=== PATIENT | female | born 1940 | race Caucasian/White ===

== ENCOUNTER 2018-10-21 15:25 | Outpatient (CLI) | payer MEDICARE, OTHER ==
--- NOTE | 2018-10-21 16:00 | ULT ---
EXAM: Left lower extremity venous duplex: Deep veins evaluated with color Doppler, spectral analysis, and compression. INDICATIONS: Left lower extremity pain and edema. FINDINGS: Deep veins interrogated include common femoral vein, femoral vein, popliteal vein, and post erior tibial vein. These veins show normal compression and blood flow. No evidence of DVT. IMPRESSION: Negative Left venous duplex exam.
== END 2018-10-21 15:26 | disposition home or self-care (01) ==
LOC: BICULT 15:25
PROVIDERS: ATTEND Family Medicine
DX: M79.605 Pain in left leg (principal)

== ENCOUNTER 2019-04-09 11:36 | Inpatient (IN) | payer MEDICARE, OTHER ==
[2019-04-09] MEDS ORDERED: Albuterol Sulfate 2.5 mg/3 ml Neb ONE (12:11)
[2019-04-09 12:20] LABS: Actual Bicarbonate (HCO3a) 29.7 mEq/L (22-28); Analyzer IN Cardio ER; Base Excess (BEa) 3.3 mEq/L (-2.0 to +3.0); CO2 Tension 53.6 mmHg (35.0-45.0); Calcium, Ionized 1.14 mmol/L (1.12-1.30); Carboxyhemoglobin (COHb) 0.2 gm% (0.0-3.0); Hemoglobin (Hb) 12.4 g/dL (12.0-16.0); O2 Tension (PaO2) 83.4 mmHg (> 70.0); Potassium - ABG Lab 3.83 mmol/L (3.70-5.30); pH, Arterial 7.36 (7.35-7.45)
[2019-04-09 12:24] LABS: Puncture Site RRA
--- NOTE | 2019-04-09 12:29 | RAD ---
EXAM: Portable chest PROVIDED CLINICAL HISTORY: Cough and congestion COMPARISON: None FINDINGS: Cardiac and mediastinal silhouette is within normal limits. No focal consolidation, pleural fluid or pneumothorax evident. IMPRESSION: No evidence for an acute cardiopulmonary process.
[2019-04-09] MEDS ORDERED: Dexamethasone 10 MG/ML VIAL ONE (12:32)
[2019-04-09] MEDS ORDERED: Magnesium 2 GM/50 ML BAG (IN WATER) ONE (12:32)
[2019-04-09 12:58] LABS: Hemoglobin 12.1 g/dL (12.0-16.0); MDiff Complete? YES; Mean Corpuscular Hemoglobin 27.1 pg (27.0-31.0); Mean Corpuscular Volume 90.2 fL (78.0-98.0); Mean Platelet Volume 9.1 fL (7.4-10.4); Platelet Count 248 thou/uL (130-400); RBC Distribution Width 18.3 % (11.5-14.5); Red Blood Cell (RBC) Count 4.47 mill/uL (4.20-5.40); White Blood Cell (WBC) Count 7.2 thou/uL (4.8-10.8)
[2019-04-09 12:59] LABS: Band 20 % (5-11); Eosinophils 1 % (0-10); Lymphocytes 18 % (21-51); Monocytes 15 % (0-10); Neutrophil 45 % (42-75); Platelet Morphology Comment Appears Adequate; Polychromasia SLIGHT = 2-3 cells (100X) (0-2/hpf)
[2019-04-09 13:05] LABS: ALT (SGPT) 18 U/L (8-55); AST (SGOT) 38 U/L (5-34); Albumin 4.1 g/dL (3.4-4.8); Alkaline Phosphatase 59 U/L (40-110); Anion Gap 17 mmol/L (10-20); BUN (Urea Nitrogen) 14 mg/dL (9.8-20.1); Bilirubin, Total 0.4 mg/dL (0.2-1.2); CK (CPK) 71 U/L (29-168); Calc. Creatinine Clearance 0 mL/min (70-130); Calcium 9.4 mg/dL (7.8-10.44); Carbon Dioxide 26 mmol/L (23-31); Chloride 96 mmol/L (98-107); Estimated GFR-MDRD 57; Globulin 3.3 g/dL (2.4-3.5); Glucose 137 mg/dL (83-110); Lipase 40 U/L (8-78); Potassium 4.3 mmol/L (3.5-5.1); Protein, Total 7.4 g/dL (6.0-8.3); Sodium 135 mmol/L (136-145)
[2019-04-09] MEDS ORDERED: Acetaminophen 500 MG TAB ONE (13:28)
[2019-04-09] MEDS ORDERED: Oseltamivir 75 MG CAP PO SCH (14:45)
[2019-04-09] MEDS ORDERED: Sodium Chloride 0.9% 1,000 ML IV SCH (15:01)
[2019-04-09] MEDS ORDERED: Senokot S 8.6-50 MG TAB PO PRN (15:01)
[2019-04-09] MEDS ORDERED: Guaifenesin DM 100-10/5 ML UDCUP PO PRN (15:01)
[2019-04-09] MEDS ORDERED: Acetaminophen 325 MG TAB PO PRN (15:01)
[2019-04-09] MEDS ORDERED: Bisacodyl 10 MG SUPP PR PRN (15:01)
[2019-04-09] MEDS ORDERED: Ondansetron PF 4 MG/2 ML Vial IVP PRN (15:01)
[2019-04-09 17:47] VITALS: BMI 36.2
--- NOTE | 2019-04-09 18:38 | HP ---
REASON FOR ADMISSION: Acute respiratory failure with hypoxia, COPD exacerbation , influenza A. HISTORY OF PRESENTING ILLNESS: The patient gives history of shortness of breath off and on for the last 4 days now. Her granddaughter had strep throat, and they had taken her to urgent care on . The patient and her daughter both went to urgent care today to check themselves for strep throat, which was negative. She tested positive for influenza A. The patient normally uses 2 L oxygen and was saturating 80% on 3 L at the urgent care and was transferred here. The patient has some expectoration of brown to greenish yellow sputum at times. She had a temperature of 99 this morning. No complaints of chest pain or palpitation. The patient has taken a flu shot for this year and pneumococcal shot as well. She normally ambulates by herself in the house. PAST MEDICAL AND SURGICAL HISTORY: History of asthma, COPD, diabetes mellitus type 2, hypertension, history of colonic AV malformations with blood loss anemia in the past from last 3 years. Last colonoscopy was a year back. She gets iron transfusions for the same and the last one was on the 19 of March, history of hemorrhoids, partial hysterectomy, bilateral femoral artery stents for peripheral vascular disease, right middle finger surgery. CURRENT MEDICATIONS: The patient is on, 1. Furosemide 40 mg p.o. daily. 2. Metformin 500 mg p.o. twice daily. 3. Prednisone 5 mg p.o. daily for COPD. 4. Singulair 10 mg p.o. daily. 5. Zyrtec 10 mg p.o. daily. 6. Ellipta inhaler daily. 7. Albuterol inhaler q.6 hourly p.r.n. ALLERGIES: ALLERGIC TO PENICILLIN AND SULFA. PERSONAL HISTORY: Quit smoking in 1992, prior to which has smoked half pack a day for nearly 20 years. Does not abuse alcohol or drugs. FAMILY HISTORY: No inheritable disease per the patient. REVIEW OF SYSTEMS: CONSTITUTIONAL: Negative for weight loss or gain, ability to conduct usual activities. SKIN: Negative for rash, itching. EYES: Negative for double vision, pain. ENT/MOUTH: Negative for nose bleeding, neck stiffness, pain, tenderness. CARDIOVASCULAR: Negative for palpitations, dyspnea on exertion, orthopnea. RESPIRATORY: Negative for shortness of breath, wheezing, cough, hemoptysis, fever or night sweats. GASTROINTESTINAL: Negative for poor appetite, abdominal pain, heartburn, nausea , vomiting, constipation, or diarrhea. GENITOURINARY: Negative for urgency, frequency, dysuria, nocturia. MUSCULOSKELETAL: Negative for pain, swelling. NEUROLOGIC/PSYCHIATRIC: Negative for anxiety, depression. ALLERGY/IMMUNOLOGIC: Negative for skin rash, bleeding tendency. PHYSICAL EXAMINATION: GENERAL: The patient is a 78-year-old female who is currently in mild respiratory distress. VITAL SIGNS: Blood pressure 120/58, pulse 110 per minute, respiratory rate 28 per minute, temperature 99 degrees Fahrenheit, saturating 89% on 3 L nasal cannula. NECK: Supple. No elevated JVD. HEENT: Eyes; extraocular muscles intact. Pupils are reacting to light. Oral cavity, mucous membranes are dry. No exudates or congestion. CARDIOVASCULAR: S1 and S2 heard. Tachycardic. No murmur. RESPIRATORY: Air entry 1+ bilateral. Scattered wheezes plus bilateral. ABDOMEN: Soft. Bowel sounds heard. No tenderness, rigidity, or guarding. EXTREMITIES: No peripheral edema or calf tenderness. VASCULAR: Peripheral pulses 1+ bilateral. No ischemic ulcerations or gangrene. CENTRAL NERVOUS SYSTEM: No gross focal deficits noted. The patient is alert, awake, and oriented well. PSYCHIATRIC: The patient's mood is euthymic. No hallucinations or delusions. LABORATORY DATA: Chest x-ray done shows no acute cardiopulmonary abnormality. Influenza A and nasal smear antigen are positive. Serum bicarb 26, BUN 14, creatinine 0.9, serum glucose 137, AST 38, ALT 18, alkaline phosphatase 59. One set of troponin is negative. BNP is 23. Albumin is 4.1. Lipase is 40. Lactic acid 1.7. Blood gas done shows a pH of 7.36, pCO2 53, PO2 83. White count of 7.2, hemoglobin and hematocrit 12 and 40, platelet count 248, MCV is 90 with 45% neutrophils, 20% bands, 18% lymphocytes, and 15% monocytes. EKG done shows sinus tachycardia at 103 beats per minute. There is left anterior fascicular block seen. CLINICAL IMPRESSION AND PLAN: The patient will be admitted to medical floor for acute on chronic respiratory failure with hypoxia, chronic obstructive pulmonary disease exacerbation, influenza a. The patient will be on Tamiflu 75 mg p.o. twice daily. We will also place her empirically on Levaquin 500 mg IV daily along with DuoNeb q.6 hourly, Solu-Medrol 20 mg IV q.8 hourly, and we will obtain consultation with Dr. Reyna. The patient had plans to see Dr. Reyna and was awaiting an appointment to see him in his office per patient. We will continue her metformin and also place her on Humalog moderate sliding scale. We will obtain PT and OT evaluations to mobilize early to prevent deconditioning. We will continue to closely monitor her on medical floor. Code status was discussed with the patient and she is a full code. Power of real estate attorney is her daughter, number to reach her is [phone]. Job ID: [id number] MTDD
[2019-04-09] MEDS ORDERED: HumaLOG 300 UNITS/3 ML VIAL SC PRN (18:39)
[2019-04-09] MEDS ORDERED: Dextrose 5% in Water 1,000 ML IV PRN (18:39)
[2019-04-09] MEDS ORDERED: Dextrose 50% Abboject 50 ML SYRINGE SLOW IVP PRN (18:39)
[2019-04-09] MEDS: metFORMIN 500 MG TAB PO SCH (19:27)
[2019-04-09] MEDS: Famotidine 20 MG TAB PO SCH (20:35)
[2019-04-09] MEDS: Oseltamivir 75 MG CAP PO SCH (20:35)
[2019-04-09] MEDS: methylPREDNISolone Sod Succ 40 MG VIAL IVP SCH (21:10)
[2019-04-10] MEDS ORDERED: PROVENTIL INHALER 6.7 G (200 INHALATIONS) INH PRN (00:03)
[2019-04-10] MEDS: methylPREDNISolone Sod Succ 40 MG VIAL IVP SCH (05:21)
[2019-04-10 06:39] LABS: #Lymphocytes 0.8 thou/uL (1.20-3.40); #Monocytes 0.3 thou/uL (0.11-0.59); #Neutrophils 2.7 thou/uL (1.40-6.50); %Eosinophils 0.3 % (0.0-10.0); %Lymphocytes 20.8 % (21.0-51.0); %Monocytes 7.9 % (0.0-10.0); %Neutrophils 71.1 % (42.0-75.0); Hemoglobin 11.4 g/dL (12.0-16.0); Mean Corpuscular Hemoglobin 27.8 pg (27.0-31.0); Mean Corpuscular Volume 89.8 fL (78.0-98.0); Mean Platelet Volume 8.9 fL (7.4-10.4); Platelet Count 246 thou/uL (130-400); RBC Distribution Width 17.9 % (11.5-14.5); Red Blood Cell (RBC) Count 4.12 mill/uL (4.20-5.40); White Blood Cell (WBC) Count 3.8 thou/uL (4.8-10.8)
[2019-04-10] MEDS: Mometasone 100 MCG HFA INHALER INH SCH ×2 (06:45→18:03)
[2019-04-10 06:57] LABS: Anion Gap 16 mmol/L (10-20); BUN (Urea Nitrogen) 19 mg/dL (9.8-20.1); Calc. Creatinine Clearance 70 mL/min (70-130); Carbon Dioxide 25 mmol/L (23-31); Chloride 99 mmol/L (98-107); Estimated GFR-MDRD 61; Glucose 140 mg/dL (83-110); Potassium 5.4 mmol/L (3.5-5.1); Sodium 135 mmol/L (136-145)
[2019-04-10] MEDS: metFORMIN 500 MG TAB PO SCH ×2 (08:50→16:12)
[2019-04-10] MEDS: Oseltamivir 75 MG CAP PO SCH ×2 (08:50→20:08)
[2019-04-10] MEDS: Enoxaparin Sodium 40 MG/0.4 ML SYRINGE SC SCH (08:50)
[2019-04-10] MEDS: Famotidine 20 MG TAB PO SCH ×2 (11:38→20:08)
--- NOTE | 2019-04-10 12:16 | PDOC.HOSPP ---
- Subjective Encounter Date: 04/10/19 Encounter Time: 08:00 Subjective: breathing better, no sob is ambulating in room she couldn't sleep last night bcos of steroids - Objective Vital Signs & Weight: Vital Signs (12 hours) Temp Pulse Pulse Pulse Resp BP BP 04/10/19 11:25 98 F 82 22 H 150/61 H 04/10/19 10:00 102 H 97 04/10/19 08:10 04/10/19 06:45 108 H 18 04/10/19 05:35 98.4 F 76 20 151/83 H Pulse Ox Pulse Ox Pulse Ox 04/10/19 11:25 97 04/10/19 10:00 83 L 91 L 04/10/19 08:10 94 L 04/10/19 06:45 94 L 04/10/19 05:35 95 Weight Weight 185 lb 11.2 oz I&O: 04/09/19 04/10/19 04/11/19 06:59 06:59 06:59 Intake Total 1050 Balance 1050 Result Diagrams: 04/10/19 06:02 04/10/19 06:02 Additional Labs: Accuchecks 04/10/19 04/10/19 04/09/19 11:23 05:58 20:43 POC Glucose 192 H 140 H 162 H Hospitalist ROS - Medication Medications: Active Medications Generic Name Dose Route Start Last Admin Trade Name Freq PRN Reason Stop Dose Admin Acetaminophen 650 mg 04/09/19 15:01 04/10/19 02:29 Tylenol PO 650 mg Q4H PRN Administration Headache/Fever/Mild Pain (1-3) Albuterol/Ipratropium 3 ml 04/09/19 19:00 04/10/19 06:45 Duoneb NEB 3 ml [id number] MAURI Administration Enoxaparin Sodium 40 mg 04/10/19 09:00 04/10/19 08:50 Lovenox SC Not Given 0900 MAURI Famotidine 20 mg 04/09/19 21:00 04/10/19 11:38 Pepcid PO Not Given BID MAURI Guaifenesin/Dextromethorphan 15 ml 04/09/19 15:01 04/10/19 02:28 Robitussin Dm PO 15 ml Q4H PRN Administration Cough Levofloxacin 500 mg/ Device 100 mls @ 100 mls/hr 04/09/19 16:00 04/09/19 18: 54 IVPB Not Given 1600 MAURI Metformin HCl 500 mg 04/09/19 17:00 04/10/19 08:50 Glucophage PO 500 mg BID-WM MAURI Administration Methylprednisolone Sodium Succinate 20 mg 04/09/19 22:00 04/10/19 05:21 Solu-Medrol IVP 20 mg Q8HR MAURI Administration Mometasone Furoate 1 puff 04/10/19 06:30 04/10/19 06:45 Asmanex Hfa 100 Mcg INH 1 puff BID-RT MAURI Administration Oseltamivir Phosphate 75 mg 04/09/19 21:00 04/10/19 08:50 Tamiflu PO 04/14/19 09:01 75 mg BID MAURI Administration - Exam General Appearance: awake alert Eye: PERRL, anicteric sclera ENT: no oropharyngeal lesions, moist mucosa Neck: supple, no JVD Heart: RRR, no murmur Respiratory: no wheezes, no rales, rhonchi Gastrointestinal: soft, non-tender, non-distended, normal bowel sounds Extremities: no cyanosis, no edema Neurological: cranial nerve grossly intact, no focal deficits Psychiatric: normal affect, A&O x 3 Hosp A/P (1) Acute on chronic respiratory failure Code(s): J96.20 - ACUTE AND CHR RESP FAILURE, UNSP W HYPOXIA OR HYPERCAPNIA Status: Acute Qualifiers: Respiratory failure complication: hypoxia Qualified Code(s): J96.21 - Acute and chronic respiratory failure with hypoxia (2) COPD exacerbation Code(s): J44.1 - CHRONIC OBSTRUCTIVE PULMONARY DISEASE W (ACUTE) EXACERBATION Status: Acute (3) Influenza A Code(s): J10.1 - FLU DUE TO OTH IDENT INFLUENZA VIRUS W OTH RESP MANIFEST Status: Acute (4) HTN (hypertension) Code(s): I10 - ESSENTIAL (PRIMARY) HYPERTENSION Status: Chronic Qualifiers: Hypertension type: essential hypertension Qualified Code(s): I10 - Essential (primary) hypertension (5) DM type 2 (diabetes mellitus, type 2) Status: Chronic Qualifiers: Diabetes mellitus termite exterminator insulin use: without termite exterminator use - Plan dc solumedrol, oral prednisone rapid taper to home dose at 5mg in 24hrs continue nebs, levaquin, tamiflu, metformin, humalog coverage hemostable taper oxygen to 2lts by nasal canula to amb as tolerated in hallway
[2019-04-10] MEDS: HumaLOG 300 UNITS/3 ML VIAL SC PRN ×2 (13:08→16:12)
[2019-04-10] MEDS ORDERED: Loperamide HCl 2 MG CAP PO SCH (17:15)
[2019-04-10] MEDS ORDERED: ALPRAZolam 0.25 MG TAB PO SCH (21:30)
[2019-04-11] MEDS: Oseltamivir 75 MG CAP PO SCH ×2 (08:34→21:49)
[2019-04-11] MEDS: metFORMIN 500 MG TAB PO SCH ×2 (08:34→16:44)
[2019-04-11] MEDS: predniSONE 20 MG TAB PO SCH (08:34)
[2019-04-11] MEDS: Mometasone 100 MCG HFA INHALER INH SCH ×2 (08:53→19:20)
[2019-04-11] MEDS: ALPRAZolam 0.25 MG TAB PO PRN ×2 (10:40→21:53)
[2019-04-11] MEDS: Famotidine 20 MG TAB PO SCH ×2 (10:40→21:48)
[2019-04-11] MEDS: Enoxaparin Sodium 40 MG/0.4 ML SYRINGE SC SCH (10:41)
--- NOTE | 2019-04-11 14:06 | PDOC.HOSPP ---
- Subjective Encounter Date: 04/11/19 Encounter Time: 08:40 Subjective: Pt seen for followup re: acute on chronic hypoxic respiratory failure. Feels anxious. - Objective Vital Signs & Weight: Vital Signs (12 hours) Temp Pulse Resp BP Pulse Ox 04/11/19 13:35 95 16 04/11/19 08:53 95 16 04/11/19 08:40 95 16 04/11/19 08:00 97.7 F 96 20 163/75 H 95 Weight Weight 185 lb 11.2 oz I&O: 04/10/19 04/11/19 04/12/19 06:59 06:59 06:59 Intake Total 1050 1710 Balance 1050 1710 Result Diagrams: 04/10/19 06:02 04/10/19 06:02 Additional Labs: Accuchecks 04/11/19 04/11/19 04/10/19 12:05 04:42 20:26 POC Glucose 152 H 150 H 136 H 04/10/19 15:44 POC Glucose 186 H Labs and MARs reviewed by md Hospitalist ROS - Review of Systems Respiratory: reports: SOB with excertion. denies: cough, dry, shortness of breath, hemoptysis, pleuritic pain, sputum, wheezing Cardiovascular: denies: chest pain, palpitations, orthopnea, paroxysmal noc. dyspnea, edema, light headedness - Medication Medications: Active Medications Generic Name Dose Route Start Last Admin Trade Name Freq PRN Reason Stop Dose Admin Acetaminophen 650 mg 04/09/19 15:01 04/10/19 02:29 Tylenol PO 650 mg Q4H PRN Administration Headache/Fever/Mild Pain (1-3) Albuterol/Ipratropium 3 ml 04/09/19 19:00 04/11/19 13:35 Duoneb NEB 3 ml [id number] MAURI Administration Alprazolam 0.25 mg 04/11/19 10:21 04/11/19 10:40 Xanax PO 0.25 mg BIDPRN PRN Administration Anxiety Enoxaparin Sodium 40 mg 04/10/19 09:00 04/11/19 10:41 Lovenox SC Not Given 0900 MAURI Famotidine 20 mg 04/09/19 21:00 04/11/19 10:40 Pepcid PO 20 mg BID MAURI Administration Guaifenesin/Dextromethorphan 15 ml 04/09/19 15:01 04/10/19 02:28 Robitussin Dm PO 15 ml Q4H PRN Administration Cough Levofloxacin 500 mg/ Device 100 mls @ 100 mls/hr 04/09/19 16:00 04/10/19 16: 09 IVPB 100 mls 1600 MAURI Administration Insulin Human Lispro 0 units 04/09/19 18:39 04/10/19 16:12 Humalog SC 2 unit .MODERATE SLIDING SC PRN Administration Moderate Correctional Scale Metformin HCl 500 mg 04/09/19 17:00 04/11/19 08:34 Glucophage PO 500 mg BID-WM MAURI Administration Mometasone Furoate 1 puff 04/10/19 06:30 04/11/19 08:53 Asmanex Hfa 100 Mcg INH 1 puff BID-RT MAURI Administration Oseltamivir Phosphate 75 mg 04/09/19 21:00 04/11/19 08:34 Tamiflu PO 04/14/19 09:01 75 mg BID MAURI Administration Prednisone 20 mg 04/11/19 08:00 04/11/19 08:34 Prednisone PO 20 mg QAM-WM MAURI Administration - Exam General - other findings: Obese Eye: anicteric sclera ENT: moist mucosa Neck: supple Heart: RRR Respiratory: CTAB Respiratory - other findings: Diminished air entry frankie bases Gastrointestinal: soft, non-tender Psychiatric: normal affect, normal behavior Hosp A/P (1) Acute on chronic respiratory failure Code(s): J96.20 - ACUTE AND CHR RESP FAILURE, UNSP W HYPOXIA OR HYPERCAPNIA Status: Acute Qualifiers: Respiratory failure complication: hypoxia Qualified Code(s): J96.21 - Acute and chronic respiratory failure with hypoxia (2) COPD exacerbation Code(s): J44.1 - CHRONIC OBSTRUCTIVE PULMONARY DISEASE W (ACUTE) EXACERBATION Status: Acute (3) Influenza A Code(s): J10.1 - FLU DUE TO OTH IDENT INFLUENZA VIRUS W OTH RESP MANIFEST Status: Acute (4) DM type 2 (diabetes mellitus, type 2) Status: Chronic Qualifiers: Diabetes mellitus rn long term care insulin use: without rn long term care use (5) HTN (hypertension) Code(s): I10 - ESSENTIAL (PRIMARY) HYPERTENSION Status: Chronic Qualifiers: Hypertension type: essential hypertension Qualified Code(s): I10 - Essential (primary) hypertension - Plan continue antibiotics, out of bed/ambulate continue oral prednisone continue nebs, levaquin, tamiflu, metformin, insulin sliding scale. Check AM labs. Likely home 24 hrs. Pt worried about going home today.
[2019-04-11] MEDS: HumaLOG 300 UNITS/3 ML VIAL SC PRN (17:42)
--- NOTE | 2019-04-11 18:14 | PRG ---
DATE OF SERVICE: 04/11/2019 SERVICE: Pulmonary Medicine. INTERVAL HISTORY: The patient is doing okay from respiratory standpoint. She is doing a little bit better until she started working with Physical Therapy. This is the most activity she has done in 3 days, and so, she is quite winded at this point. Otherwise, there has been no interval change to her condition. She continues to cough a little bit. We spent a little bit of time talking about home ventilators. Initially, she was a little resistant to the idea because of claustrophobia issues, but at this point, she consented to try to see if this can improve her quality of life to any significant degree. PHYSICAL EXAMINATION: VITAL SIGNS: Afebrile, pulse 95, blood pressure 163/75, respirations 20, saturation 95% on 3 L nasal cannula. GENERAL: The patient is awake and alert. She is in no apparent distress. LUNGS: Improved air entry. There are prolonged expiratory phase and more wheezing than yesterday. No crackles or rhonchi are appreciated. HEART: Normal rate. Regular. ABDOMEN: Soft, nontender and nondistended. Bowel sounds are positive. MUSCULOSKELETAL: No cyanosis or clubbing. Trace to 1+ pitting is present in the bilateral lower extremities. NEUROLOGIC: Grossly nonfocal. LABORATORY DATA: Blood sugar ranges from 136 to 244. Blood cultures x2 are negative. Influenza A is positive. IMAGING STUDIES: Echocardiogram demonstrates normal ejection fraction, normal left atrium. Diastolic dysfunction is present. ASSESSMENT: 1. [id number] hypoxic respiratory failure. 2. Chronic hypercapnic respiratory failure. 3. Chronic obstructive pulmonary disease with acute exacerbation. 4. Influenza A. 5. Chronic diastolic heart failure. DISCUSSION AND PLAN: I will give the patient a single dose of Lasix, but I will postpone until tomorrow morning because it is getting late in the evening. I will put in a consult for RT Rosa to set the patient up with a nocturnal ventilator for night time and as needed day time use. Home BiPAP would be insufficient because of the severity of the patient's underlying respiratory failure. COPD causing hypercapnic failure is the major contributor to her respiratory disease. I will have her follow up with me in clinic in 2 to 3 months in the outpatient setting with a download off her new device. When she feels ready for discharge, she can be considered, but until that occurs, she is a very likely bounce-back. Job ID: [id number] MILLY
[2019-04-12 05:11] LABS: #Lymphocytes 1.5 thou/uL (1.20-3.40); #Neutrophils 4.4 thou/uL (1.40-6.50); %Basophils 0.1 % (0.0-1.0); %Eosinophils 0.2 % (0.0-10.0); %Lymphocytes 21.9 % (21.0-51.0); %Monocytes 14.5 % (0.0-10.0); %Neutrophils 63.3 % (42.0-75.0); Hemoglobin 9.6 g/dL (12.0-16.0); Mean Corpuscular HGB CONC 30.6 g/dL (32.0-36.0); Mean Corpuscular Hemoglobin 27.5 pg (27.0-31.0); Mean Corpuscular Volume 89.9 fL (78.0-98.0); Platelet Count 219 thou/uL (130-400); RBC Distribution Width 17.9 % (11.5-14.5); Red Blood Cell (RBC) Count 3.51 mill/uL (4.20-5.40); White Blood Cell (WBC) Count 6.9 thou/uL (4.8-10.8)
[2019-04-12 05:30] LABS: Anion Gap 10 mmol/L (10-20); BUN (Urea Nitrogen) 23 mg/dL (9.8-20.1); Calc. Creatinine Clearance 75 mL/min (70-130); Calcium 8.8 mg/dL (7.8-10.44); Carbon Dioxide 31 mmol/L (23-31); Chloride 104 mmol/L (98-107); Estimated GFR-MDRD 66; Glucose 121 mg/dL (83-110); Potassium 4.4 mmol/L (3.5-5.1); Sodium 141 mmol/L (136-145)
[2019-04-12] MEDS: Mometasone 100 MCG HFA INHALER INH SCH ×2 (06:38→18:27)
[2019-04-12] MEDS: metFORMIN 500 MG TAB PO SCH ×2 (08:26→18:36)
[2019-04-12] MEDS: predniSONE 20 MG TAB PO SCH (08:26)
[2019-04-12] MEDS: Oseltamivir 75 MG CAP PO SCH ×2 (08:26→21:01)
[2019-04-12] MEDS: ALPRAZolam 0.25 MG TAB PO PRN (08:35)
[2019-04-12] MEDS ORDERED: Furosemide 40 MG/4 ML VIAL SLOW IVP SCH (09:00)
--- NOTE | 2019-04-12 10:16 | CON ---
DATE OF CONSULTATION: SERVICE: Pulmonary Medicine. REASON FOR CONSULTATION: COPD exacerbation. HISTORY OF PRESENT ILLNESS: The patient is a 78-year-old white female with past medical history significant for COPD and chronic hypoxic respiratory failure. She is on home oxygen. She typically uses [employer]. She was in her usual state of health when she was visiting with her family. There were several grandchildren that were sick. Ultimately, 3 days after her first day, she ended up with increasing shortness of breath, cough, and fever. She had malaise and myalgias. She presented to the emergency department a couple of days later and was identified as having the flu. Since she has been in the hospital, she has made a significant improvement in symptoms. She has been on steroids, nebulized medications, and antibiotics. Otherwise, she is in her usual state of health. She does not have any chest discomfort, nausea, vomiting, or diarrhea. PAST MEDICAL HISTORY: 1. COPD. 2. Chronic hypoxic respiratory failure. 3. Childhood history of asthma. 4. Type 2 diabetes mellitus. 5. Hypertension. 6. Dyslipidemia. 7. 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 PAST SURGICAL HISTORY: 1. Partial hysterectomy. 2. Femoral artery stent placement. 3. Right third digit surgery. ALLERGIES: PENICILLIN AND SULFA. MEDICATIONS: List of her inpatient medications was reviewed. No specific updates were made. FAMILY HISTORY: Noncontributory. SOCIAL HISTORY: She quit smoking in 1992. Prior to that, she only had a 10-15 pack year history of smoking. Denies any alcohol or illicit drugs. She has no exposure to chemicals, dust, asbestos, or tuberculosis. REVIEW OF SYSTEMS: General, head, ears, eyes, nose, throat, cardiovascular, respiratory, GI, , musculoskeletal, neurologic, and skin are negative except as mentioned is the HPI. PHYSICAL EXAMINATION: VITAL SIGNS: Afebrile, pulse 98, blood pressure 150/61, respirations 16, saturation 93%, currently on 2 L nasal cannula. GENERAL: The patient is awake and alert, in no apparent distress. LUNGS: Very reduced air entry with a prolonged expiratory phase. Polyphonic wheezing and crackles are both appreciated. Rhonchi are present, but do not clear with cough. HEART: Normal rate. Regular. ABDOMEN: Soft, nontender, nondistended. Bowel sounds are positive. MUSCULOSKELETAL: No cyanosis or clubbing. There is a trace 1+ pitting in the right lower extremity. No pitting in the left lower extremity. NEUROLOGIC: Grossly nonfocal. LABORATORY DATA: WBC 3.8, hemoglobin 11.4, platelets 246,000. PH 7.36, pCO2 of 53, pO2 of 83. Potassium 5.4. Basic metabolic profile is otherwise unremarkable. Creatinine 0.9. Blood cultures x2 are unremarkable. Influenza A is positive. IMAGING STUDIES: Chest x-ray demonstrates flattening of the diaphragm bilaterally. Otherwise, there are no overt consolidating lesions identified. ASSESSMENT: 1. Acute on chronic hypoxic and hypercapnic respiratory failure. 2. Chronic obstructive pulmonary disease with acute exacerbation secondary to influenza A. DISCUSSION AND PLAN: The patient is doing fine from respiratory standpoint. She is moving in the right direction. We will continue supportive care including steroids, nebulized medications, and antibiotics. She may benefit from noninvasive ventilation in the outpatient setting. Pulmonary/Critical Care will continue to follow. I will get an echocardiogram to evaluate her left ventricular ejection fraction. Pulmonary/Critical Care will continue to follow along. 70 minutes have been devoted to this patient in various activities. I personally reviewed all imaging studies and laboratory data noted within this document. For fifty percent of this time, I was interacting with the patient at the bedside or coordinating care with the care team. For the remainder of the time I was immediately available to the patient in the hospital unit. Job ID: [id number] MTDD
[2019-04-12] MEDS: Enoxaparin Sodium 40 MG/0.4 ML SYRINGE SC SCH (10:28)
--- NOTE | 2019-04-12 10:32 | PDOC.HOSPP ---
- Subjective Encounter Date: 04/12/19 Encounter Time: 09:45 Subjective: feels better is on 2 lts by nc oxygen daughter at bedside - Objective Vital Signs & Weight: Vital Signs (12 hours) Temp Pulse Resp BP Pulse Ox 04/12/19 08:00 98.1 F 100 20 140/62 95 04/12/19 06:40 94 18 100 04/12/19 06:38 94 18 100 04/11/19 23:43 88 16 94 L Weight Weight 185 lb 11.2 oz I&O: 04/11/19 04/12/19 04/13/19 06:59 06:59 06:59 Intake Total 1710 Balance 1710 Result Diagrams: 04/12/19 04:53 04/12/19 04:53 Additional Labs: Accuchecks 04/12/19 04/11/19 04/11/19 05:10 20:35 16:43 POC Glucose 123 H 134 H 244 H 04/11/19 12:05 POC Glucose 152 H Hospitalist ROS - Medication Medications: Active Medications Generic Name Dose Route Start Last Admin Trade Name Freq PRN Reason Stop Dose Admin Acetaminophen 650 mg 04/09/19 15:01 04/10/19 02:29 Tylenol PO 650 mg Q4H PRN Administration Headache/Fever/Mild Pain (1-3) Albuterol/Ipratropium 3 ml 04/09/19 19:00 04/12/19 06:40 Duoneb NEB 3 ml [id number] MAURI Administration Alprazolam 0.25 mg 04/11/19 10:21 04/12/19 08:35 Xanax PO 0.25 mg BIDPRN PRN Administration Anxiety Enoxaparin Sodium 40 mg 04/10/19 09:00 04/12/19 10:28 Lovenox SC 40 mg 0900 MAURI Administration Famotidine 20 mg 04/09/19 21:00 04/11/19 21:48 Pepcid PO 20 mg BID MAURI Administration Guaifenesin/Dextromethorphan 15 ml 04/09/19 15:01 04/10/19 02:28 Robitussin Dm PO 15 ml Q4H PRN Administration Cough Insulin Human Lispro 0 units 04/09/19 18:39 04/11/19 17:42 Humalog SC 4 unit .MODERATE SLIDING SC PRN Administration Moderate Correctional Scale Metformin HCl 500 mg 04/09/19 17:00 04/12/19 08:26 Glucophage PO 500 mg BID-WM MAURI Administration Mometasone Furoate 1 puff 04/10/19 06:30 04/12/19 06:38 Asmanex Hfa 100 Mcg INH 1 puff BID-RT MAURI Administration Oseltamivir Phosphate 75 mg 04/09/19 21:00 04/12/19 08:26 Tamiflu PO 04/14/19 09:01 75 mg BID MAURI Administration Prednisone 20 mg 04/11/19 08:00 04/12/19 08:26 Prednisone PO 20 mg QAM-WM MAURI Administration - Exam General Appearance: awake alert Eye: PERRL, anicteric sclera ENT: no oropharyngeal lesions, moist mucosa Neck: supple, no JVD Heart: RRR, no murmur Respiratory: no wheezes, no rales, rhonchi Gastrointestinal: soft, non-tender, non-distended, normal bowel sounds Extremities: no cyanosis, no edema Neurological: cranial nerve grossly intact, no focal deficits Psychiatric: normal affect, A&O x 3 Hosp A/P (1) Acute on chronic respiratory failure Code(s): J96.20 - ACUTE AND CHR RESP FAILURE, UNSP W HYPOXIA OR HYPERCAPNIA Status: Acute Qualifiers: Respiratory failure complication: hypoxia Qualified Code(s): J96.21 - Acute and chronic respiratory failure with hypoxia (2) COPD exacerbation Code(s): J44.1 - CHRONIC OBSTRUCTIVE PULMONARY DISEASE W (ACUTE) EXACERBATION Status: Acute (3) Influenza A Code(s): J10.1 - FLU DUE TO OTH IDENT INFLUENZA VIRUS W OTH RESP MANIFEST Status: Acute (4) HTN (hypertension) Code(s): I10 - ESSENTIAL (PRIMARY) HYPERTENSION Status: Chronic Qualifiers: Hypertension type: essential hypertension Qualified Code(s): I10 - Essential (primary) hypertension (5) DM type 2 (diabetes mellitus, type 2) Status: Chronic Qualifiers: Diabetes mellitus superintendent container terminal insulin use: without superintendent container terminal use - Plan continue nebs, steroids, levaquin, tamiflu, metformin, humalog coverage hemostable to amb as tolerated in hallway home vent is being arranged by pulm dc plan per pulm advice I have d/w patient and daughter at bedside
[2019-04-12] MEDS ORDERED: Furosemide 80 MG TAB PO SCH (11:45)
--- NOTE | 2019-04-12 12:02 | PRG ---
DATE OF SERVICE: 04/12/2019 SERVICE: Pulmonary Medicine. INTERVAL HISTORY: The patient is doing wonderful from respiratory standpoint. She spoke with Sarmad Barlow today. She is looking forward to making an attempt to getting on noninvasive ventilator to see if this improves her quality of life and decreases her requirements for hospital stays. She denies any fevers, chills, nausea, or vomiting otherwise. PHYSICAL EXAMINATION: VITAL SIGNS: Afebrile, pulse 100, blood pressure 140/62, respirations 20, and saturation 95% on 2 L nasal cannula. GENERAL: The patient is awake and alert, in no apparent distress. LUNGS: Very reduced air entry. Polyphonic wheezing is present. I do not hear any crackles or rhonchi. HEART: Normal rate and regular. ABDOMEN: Soft, nontender, and nondistended. Bowel sounds are positive. MUSCULOSKELETAL: No cyanosis or clubbing. Trace pitting edema on the right and 1+ pitting edema on the left. LABORATORY DATA: WBC 6.9, hemoglobin 9.6. Creatinine 0.84. Basic metabolic profile is otherwise unremarkable. Blood cultures x2 are unremarkable. Influenza A is positive. ASSESSMENT: 1. Acute on chronic hypoxic respiratory failure. 2. Chronic hypercapnic respiratory failure. 3. Chronic obstructive pulmonary disease with acute exacerbation. 4. Influenza A. 5. Chronic diastolic heart failure. DISCUSSION AND PLAN: We will continue our supportive care including antibiotics, nebulized medications, and steroids. On discharge from the hospital, she will be set up with a home ventilator. She says that she is not prepared to go home today because she still has significant dyspnea when getting around. I will repeat hemoglobin and hematocrit tomorrow. I will look for signs of blood loss. If present, we will address that. Pulmonary/Critical Care will follow. Job ID: [id number]
[2019-04-12] MEDS: Famotidine 20 MG TAB PO SCH ×2 (12:39→21:01)
[2019-04-12] MEDS: HumaLOG 300 UNITS/3 ML VIAL SC PRN (18:40)
[2019-04-13] MEDS: ALPRAZolam 0.25 MG TAB PO PRN (04:09)
[2019-04-13 05:53] LABS: Hemoglobin 10.5 g/dL (12.0-16.0)
[2019-04-13] MEDS: Mometasone 100 MCG HFA INHALER INH SCH ×2 (07:01→19:07)
[2019-04-13] MEDS: Oseltamivir 75 MG CAP PO SCH ×2 (08:53→20:42)
[2019-04-13] MEDS: metFORMIN 500 MG TAB PO SCH ×2 (08:53→19:14)
[2019-04-13] MEDS: predniSONE 20 MG TAB PO SCH (08:53)
[2019-04-13] MEDS: Furosemide 40 MG TAB PO SCH (08:53)
[2019-04-13] MEDS: Famotidine 20 MG TAB PO SCH ×2 (08:53→20:41)
--- NOTE | 2019-04-13 11:51 | PDOC.HOSPP ---
- Subjective Encounter Date: 04/13/19 Encounter Time: 10:00 Subjective: had anxiety issues this am, feels better now worried going home with her sats dropping down to 83% on amb with 2 lts nc yesterday ate her breakfast well - Objective Vital Signs & Weight: Vital Signs (12 hours) Temp Pulse Resp BP Pulse Ox 04/13/19 08:00 98.3 F 105 H 20 144/71 H 95 04/13/19 07:03 94 18 97 04/13/19 07:01 92 18 97 04/13/19 00:42 102 H 18 96 Weight Weight 185 lb 11.2 oz Result Diagrams: 04/13/19 05:21 04/12/19 04:53 Additional Labs: Accuchecks 04/13/19 04/13/19 04/12/19 11:37 05:19 20:48 POC Glucose 150 H 123 H 181 H 04/12/19 17:17 POC Glucose 195 H Hospitalist ROS - Medication Medications: Active Medications Generic Name Dose Route Start Last Admin Trade Name Freq PRN Reason Stop Dose Admin Acetaminophen 650 mg 04/09/19 15:01 04/10/19 02:29 Tylenol PO 650 mg Q4H PRN Administration Headache/Fever/Mild Pain (1-3) Albuterol/Ipratropium 3 ml 04/09/19 19:00 04/13/19 07:03 Duoneb NEB 3 ml [id number] MAURI Administration Alprazolam 0.25 mg 04/11/19 10:21 04/13/19 04:09 Xanax PO 0.25 mg BIDPRN PRN Administration Anxiety Enoxaparin Sodium 40 mg 04/10/19 09:00 04/12/19 10:28 Lovenox SC 40 mg 0900 MAURI Administration Famotidine 20 mg 04/09/19 21:00 04/13/19 08:53 Pepcid PO 20 mg BID MAURI Administration Furosemide 40 mg 04/13/19 09:00 04/13/19 08:53 Lasix PO 40 mg DAILY MAURI Administration Guaifenesin/Dextromethorphan 15 ml 04/09/19 15:01 04/10/19 02:28 Robitussin Dm PO 15 ml Q4H PRN Administration Cough Insulin Human Lispro 0 units 04/09/19 18:39 04/12/19 18:40 Humalog SC 2 unit .MODERATE SLIDING SC PRN Administration Moderate Correctional Scale Levofloxacin 500 mg 04/13/19 06:00 04/13/19 06:23 Levaquin PO 500 mg 0600 MAURI Administration Metformin HCl 500 mg 04/09/19 17:00 04/13/19 08:53 Glucophage PO 500 mg BID-WM MAURI Administration Mometasone Furoate 1 puff 04/10/19 06:30 04/13/19 07:01 Asmanex Hfa 100 Mcg INH 1 puff BID-RT MAURI Administration Oseltamivir Phosphate 75 mg 04/09/19 21:00 04/13/19 08:53 Tamiflu PO 04/14/19 09:01 75 mg BID MAURI Administration Prednisone 20 mg 04/11/19 08:00 04/13/19 08:53 Prednisone PO 20 mg QAM-WM MAURI Administration - Exam General Appearance: awake alert Eye: PERRL, anicteric sclera ENT: no oropharyngeal lesions, moist mucosa Neck: supple, no JVD Heart: RRR Respiratory: no wheezes, no rales, rhonchi Gastrointestinal: soft, non-tender, non-distended, normal bowel sounds Extremities: no cyanosis, no edema Neurological: cranial nerve grossly intact, no focal deficits Psychiatric: normal affect, A&O x 3 Hosp A/P (1) Acute on chronic respiratory failure Code(s): J96.20 - ACUTE AND CHR RESP FAILURE, UNSP W HYPOXIA OR HYPERCAPNIA Status: Acute Qualifiers: Respiratory failure complication: hypoxia Qualified Code(s): J96.21 - Acute and chronic respiratory failure with hypoxia (2) COPD exacerbation Code(s): J44.1 - CHRONIC OBSTRUCTIVE PULMONARY DISEASE W (ACUTE) EXACERBATION Status: Acute (3) Influenza A Code(s): J10.1 - FLU DUE TO OTH IDENT INFLUENZA VIRUS W OTH RESP MANIFEST Status: Acute (4) HTN (hypertension) Code(s): I10 - ESSENTIAL (PRIMARY) HYPERTENSION Status: Chronic Qualifiers: Hypertension type: essential hypertension Qualified Code(s): I10 - Essential (primary) hypertension (5) DM type 2 (diabetes mellitus, type 2) Status: Chronic Qualifiers: Diabetes mellitus mcfp insulin use: without mcfp use - Plan continue nebs, steroids, levaquin, tamiflu, metformin, lasix, humalog coverage hemostable to amb as tolerated in hallway home vent is being arranged by pulm dc plan per pulm advice I have d/w patient and daughter at bedside staff to check her amb spo2 on 2 lts oxygen today and daily. ?swing bed if she still decompensates.
[2019-04-13] MEDS: HumaLOG 300 UNITS/3 ML VIAL SC PRN ×2 (12:02→18:21)
[2019-04-13] MEDS: Enoxaparin Sodium 40 MG/0.4 ML SYRINGE SC SCH (12:02)
--- NOTE | 2019-04-13 16:00 | PRG ---
DATE OF SERVICE: 04/13/2019 SERVICE: Pulmonary Medicine. INTERVAL HISTORY: The patient is doing okay from respiratory standpoint. She is about the same as yesterday. She has not made a robust recovery and she is a little bit downhearted because of that. Otherwise, she continues to cough a little bit, but not bringing up much phlegm. Denies any fevers or chills otherwise. PHYSICAL EXAMINATION: VITAL SIGNS: Afebrile, pulse 105, blood pressure 144/71, respirations 20, and saturation 95% on 2 L nasal cannula. GENERAL: The patient is awake and alert, in no apparent distress. LUNGS: Very good air entry without any prolonged expiratory phase or wheezing present. HEART: Normal rate, regular. ABDOMEN: Soft, nontender, nondistended, bowel sounds are positive. MUSCULOSKELETAL: No cyanosis or clubbing. There is pitting in bilateral lower extremities. NEUROLOGIC: Grossly nonfocal. LABORATORY DATA: Hemoglobin 10.5 and stable. Blood cultures x2 are negative. Influenza A is positive. ASSESSMENT: 1. Acute on chronic hypoxic respiratory failure. 2. Chronic hypercapnic respiratory failure. 3. Chronic obstructive pulmonary disease with acute exacerbation. 4. Influenza A. 5. Chronic diastolic heart failure. DISCUSSION AND PLAN: The patient is doing fine from respiratory standpoint. She just needs a little bit of time to recover from her influenza. We will continue supportive care including antibiotics, steroids, and nebulized medications. When she is discharged from the hospital, she will be set up with a home ventilator. Hemoglobin has been stable. No additional laboratories will be drawn tomorrow. Pulmonary will follow, intermittently, but when she feels ready for transition out of the hospital, she will be ready to go. Job ID: [id number]
[2019-04-14] MEDS: ALPRAZolam 0.25 MG TAB PO PRN ×2 (05:30→19:24)
[2019-04-14] MEDS: Mometasone 100 MCG HFA INHALER INH SCH ×2 (08:18→19:05)
[2019-04-14] MEDS: Enoxaparin Sodium 40 MG/0.4 ML SYRINGE SC SCH (09:34)
[2019-04-14] MEDS: Oseltamivir 75 MG CAP PO SCH (09:34)
[2019-04-14] MEDS: Famotidine 20 MG TAB PO SCH ×2 (09:34→19:23)
[2019-04-14] MEDS: metFORMIN 500 MG TAB PO SCH ×2 (09:34→17:06)
[2019-04-14] MEDS: predniSONE 20 MG TAB PO SCH (09:34)
[2019-04-14] MEDS: Furosemide 40 MG TAB PO SCH (09:34)
--- NOTE | 2019-04-14 11:21 | PDOC.HOSPP ---
- Subjective Encounter Date: 04/14/19 Encounter Time: 10:00 Subjective: no new complaints still gets short winded on minimal exertion - Objective Vital Signs & Weight: Vital Signs (12 hours) Temp Pulse Resp BP Pulse Ox 04/14/19 08:18 106 H 18 04/14/19 08:00 92 L 04/14/19 07:56 97.8 F 106 H 18 126/65 92 L 04/14/19 00:47 103 H 16 94 L Weight Weight 185 lb 11.2 oz I&O: 04/13/19 04/14/19 04/15/19 06:59 06:59 06:59 Intake Total 450 240 Balance 450 240 Result Diagrams: 04/13/19 05:21 04/12/19 04:53 Additional Labs: Accuchecks 04/14/19 04/13/19 04/13/19 04:31 20:26 17:06 POC Glucose 125 H 136 H 234 H 04/13/19 11:37 POC Glucose 150 H Hospitalist ROS - Medication Medications: Active Medications Generic Name Dose Route Start Last Admin Trade Name Freq PRN Reason Stop Dose Admin Acetaminophen 650 mg 04/09/19 15:01 04/10/19 02:29 Tylenol PO 650 mg Q4H PRN Administration Headache/Fever/Mild Pain (1-3) Albuterol/Ipratropium 3 ml 04/09/19 19:00 04/14/19 08:18 Duoneb NEB 3 ml [id number] MAURI Administration Alprazolam 0.25 mg 04/11/19 10:21 04/14/19 05:30 Xanax PO 0.25 mg BIDPRN PRN Administration Anxiety Enoxaparin Sodium 40 mg 04/10/19 09:00 04/14/19 09:34 Lovenox SC 40 mg 0900 MAURI Administration Famotidine 20 mg 04/09/19 21:00 04/14/19 09:34 Pepcid PO 20 mg BID MAURI Administration Furosemide 40 mg 04/13/19 09:00 04/14/19 09:34 Lasix PO 40 mg DAILY MAURI Administration Guaifenesin/Dextromethorphan 15 ml 04/09/19 15:01 04/10/19 02:28 Robitussin Dm PO 15 ml Q4H PRN Administration Cough Insulin Human Lispro 0 units 04/09/19 18:39 04/13/19 18:21 Humalog SC 4 unit .MODERATE SLIDING SC PRN Administration Moderate Correctional Scale Metformin HCl 500 mg 04/09/19 17:00 04/14/19 09:34 Glucophage PO 500 mg BID-WM MAURI Administration Mometasone Furoate 1 puff 04/10/19 06:30 04/14/19 08:18 Asmanex Hfa 100 Mcg INH 1 puff BID-RT MAURI Administration - Exam General Appearance: awake alert Eye: PERRL, anicteric sclera ENT: no oropharyngeal lesions, moist mucosa Neck: supple, no JVD Heart: RRR, no murmur Respiratory: no wheezes, no rales, rhonchi Gastrointestinal: soft, non-tender, non-distended, normal bowel sounds Extremities: no cyanosis, no edema Neurological: cranial nerve grossly intact, no focal deficits Psychiatric: normal affect, A&O x 3 Hosp A/P (1) Acute on chronic respiratory failure Code(s): J96.20 - ACUTE AND CHR RESP FAILURE, UNSP W HYPOXIA OR HYPERCAPNIA Status: Acute Qualifiers: Respiratory failure complication: hypoxia Qualified Code(s): J96.21 - Acute and chronic respiratory failure with hypoxia (2) COPD exacerbation Code(s): J44.1 - CHRONIC OBSTRUCTIVE PULMONARY DISEASE W (ACUTE) EXACERBATION Status: Acute (3) Influenza A Code(s): J10.1 - FLU DUE TO OTH IDENT INFLUENZA VIRUS W OTH RESP MANIFEST Status: Acute (4) HTN (hypertension) Code(s): I10 - ESSENTIAL (PRIMARY) HYPERTENSION Status: Chronic Qualifiers: Hypertension type: essential hypertension Qualified Code(s): I10 - Essential (primary) hypertension (5) DM type 2 (diabetes mellitus, type 2) Status: Chronic 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 Off levaquin and tamiflu 04/14/2019 hemostable to amb as tolerated in hallway home vent is being arranged by pulm staff to check her amb spo2 on 2 lts oxygen daily. may dc to rehab/swing bed/snf anytime if accepted.
[2019-04-14] MEDS ORDERED: Fluconazole 100 MG TAB PO SCH (11:45)
[2019-04-14] MEDS ORDERED: Clotrimazole 2% 3 Day Vag Cr 22.2 GM TUBE VAG SCH (21:00)
[2019-04-15] MEDS: Mometasone 100 MCG HFA INHALER INH SCH (07:05)
[2019-04-15 07:52] VITALS: BP 107/70; TEMP 97.8
[2019-04-15] MEDS ORDERED: predniSONE 5 MG TAB PO SCH (08:00)
[2019-04-15] MEDS: Enoxaparin Sodium 40 MG/0.4 ML SYRINGE SC SCH (09:31)
[2019-04-15] MEDS: Famotidine 20 MG TAB PO SCH (09:31)
[2019-04-15] MEDS: metFORMIN 500 MG TAB PO SCH (09:31)
[2019-04-15] MEDS: Furosemide 40 MG TAB PO SCH (09:31)
--- NOTE | 2019-04-15 11:49 | PDOC.HOSPP ---
- Subjective Encounter Date: 04/15/19 Encounter Time: 07:45 Subjective: no new complaints, feels better - Objective Vital Signs & Weight: Vital Signs (12 hours) Temp Pulse Resp BP Pulse Ox 04/15/19 08:00 93 L 04/15/19 07:47 97.8 F 96 18 107/70 90 L 04/15/19 07:09 96 04/15/19 07:08 93 16 96 04/15/19 07:05 86 20 96 04/15/19 00:29 98 12 Weight Admit Weight 185 lb 11.2 oz Weight 185 lb 11.2 oz I&O: 04/14/19 04/15/19 04/16/19 06:59 06:59 06:59 Intake Total 450 720 200 Balance 450 720 200 Result Diagrams: 04/13/19 05:21 04/12/19 04:53 Additional Labs: Accuchecks 04/15/19 04/14/19 04/14/19 04:29 19:58 17:00 POC Glucose 126 H 146 H 172 H 04/14/19 11:50 POC Glucose 178 H Hospitalist ROS - Medication Medications: Active Medications Generic Name Dose Route Start Last Admin Trade Name Freq PRN Reason Stop Dose Admin Acetaminophen 650 mg 04/09/19 15:01 04/10/19 02:29 Tylenol PO 650 mg Q4H PRN Administration Headache/Fever/Mild Pain (1-3) Albuterol/Ipratropium 3 ml 04/09/19 19:00 04/15/19 07:08 Duoneb NEB 3 ml [id number] MAURI Administration Alprazolam 0.25 mg 04/11/19 10:21 04/14/19 19:24 Xanax PO 0.25 mg BIDPRN PRN Administration Anxiety Enoxaparin Sodium 40 mg 04/10/19 09:00 04/15/19 09:31 Lovenox SC 40 mg 0900 MAURI Administration Famotidine 20 mg 04/09/19 21:00 04/15/19 09:31 Pepcid PO 20 mg BID MAURI Administration Furosemide 40 mg 04/13/19 09:00 04/15/19 09:31 Lasix PO 40 mg DAILY MAURI Administration Guaifenesin/Dextromethorphan 15 ml 04/09/19 15:01 04/10/19 02:28 Robitussin Dm PO 15 ml Q4H PRN Administration Cough Insulin Human Lispro 0 units 04/09/19 18:39 04/13/19 18:21 Humalog SC 4 unit .MODERATE SLIDING SC PRN Administration Moderate Correctional Scale Metformin HCl 500 mg 04/09/19 17:00 04/15/19 09:31 Glucophage PO 500 mg BID-WM MAURI Administration Mometasone Furoate 1 puff 04/10/19 06:30 04/15/19 07:05 Asmanex Hfa 100 Mcg INH 1 puff BID-RT MAURI Administration Prednisone 5 mg 04/15/19 08:00 04/15/19 09:31 Prednisone PO 5 mg QAM-WM MAURI Administration - Exam General Appearance: awake alert Eye: PERRL, anicteric sclera ENT: no oropharyngeal lesions, moist mucosa Neck: supple, no JVD Heart: RRR, no murmur Respiratory: no wheezes, no rales, rhonchi Gastrointestinal: soft, non-tender, non-distended, normal bowel sounds Extremities: no cyanosis, no edema Neurological: cranial nerve grossly intact, no focal deficits Psychiatric: normal affect, A&O x 3 Hosp A/P (1) Acute on chronic respiratory failure Code(s): J96.20 - ACUTE AND CHR RESP FAILURE, UNSP W HYPOXIA OR HYPERCAPNIA Status: Acute Qualifiers: Respiratory failure complication: hypoxia Qualified Code(s): J96.21 - Acute and chronic respiratory failure with hypoxia (2) COPD exacerbation Code(s): J44.1 - CHRONIC OBSTRUCTIVE PULMONARY DISEASE W (ACUTE) EXACERBATION Status: Acute (3) Influenza A Code(s): J10.1 - FLU DUE TO OTH IDENT INFLUENZA VIRUS W OTH RESP MANIFEST Status: Acute (4) HTN (hypertension) Code(s): I10 - ESSENTIAL (PRIMARY) HYPERTENSION Status: Chronic Qualifiers: Hypertension type: essential hypertension Qualified Code(s): I10 - Essential (primary) hypertension (5) DM type 2 (diabetes mellitus, type 2) Status: Chronic Qualifiers: Diabetes mellitus meterman insulin use: without meterman use - Plan continue nebs, steroids, metformin, lasix, humalog coverage. Off levaquin and tamiflu 04/14/2019 hemostable, to continue home dose prednisone 10mg daily on dc to amb as tolerated in hallway home vent is being arranged by pulm staff to check her amb spo2 on 2 lts oxygen daily. may dc to snf anytime
--- NOTE | 2019-04-15 13:15 | PRG ---
DATE OF SERVICE: 04/15/2019 SERVICE: Pulmonary Medicine. INTERVAL HISTORY: The patient is doing fine from respiratory standpoint. Breathing comfortably. No complaints of chest discomfort, nausea or vomiting. She feels that the rattle in her chest is still present, but that the mucus is breaking up a little bit. As such, she feels like she is moving more air. Otherwise, there has been no interval change to her condition. PHYSICAL EXAMINATION: VITAL SIGNS: Afebrile, pulse 96, blood pressure 107/70, respirations 18, and saturation 98% on 2 L nasal cannula. GENERAL: The patient is awake and alert, in no apparent distress. LUNGS: Decreased air entry. That being said, she is moving better air than she was previously. There is a significantly prolonged expiratory phase with wheezing and rhonchi both present. I do not appreciate any crackling today. HEART: Normal rate, regular. ABDOMEN: Soft, nontender, and nondistended. Bowel sounds are positive. MUSCULOSKELETAL: No cyanosis or clubbing. There is only trace pitting in the bilateral lower extremities. NEUROLOGIC: Grossly nonfocal. ASSESSMENT: 1. Acute on chronic hypoxic respiratory failure. 2. Chronic hypercapnic respiratory failure. 3. Chronic obstructive pulmonary disease with acute exacerbation. 4. Influenza A. 5. Chronic diastolic heart failure. DISCUSSION AND PLAN: The patient has returned to euvolemia. Her breathing has improved a little bit. We will continue a 5-day course of steroids, antibiotics and nebulized medications. At this point, she has no further requirements for inpatient Pulmonary or Critical Care opinion, and I will sign off. She is going to return to clinic to see me in 3 to 4 weeks in the outpatient setting. At that point, I will consider transitioning over to nebulized therapy as I am doubtful that her lung function is good enough to get the Trilogy. Job ID: [id number] [facility]
--- NOTE | 2019-04-15 14:43 | DIS ---
DATE OF ADMISSION: 04/09/2019 DATE OF DISCHARGE: 04/15/2019 [address]POSITION: [facility]. PRIMARY DISCHARGE DIAGNOSES: Acute on chronic respiratory failure with hypoxia, acute on chronic COPD exacerbation, influenza A infection, sepsis. SECONDARY DISCHARGE DIAGNOSES: Hypertension, diabetes mellitus type 2, deconditioning. PROCEDURES DONE DURING HOSPITALIZATION: Chest x-ray done on the day of admission showed no acute cardiopulmonary process. Echo with 2D Doppler showed EF of 55% to 60%. There was diastolic dysfunction. Blood cultures x2, no growth. Influenza A antigen was positive. White count of 7, hemoglobin and hematocrit of 10 and 33, platelet count 219. Initial blood gas done showed a pH of 7.36, pCO2 of 53, PO2 of 83. Discharge BUN and creatinine are 23 and 0.8. BNP was 23. DISCHARGE MEDICATIONS: 1. Prednisone 10 mg daily, which is her home dose. 2. Xanax 0.25 mg p.o. twice daily p.r.n. for anxiety. 3. Pepcid 20 mg twice daily. 4. DuoNeb q.6 hourly p.r.n. 5. Singulair 10 mg p.o. daily. 6. Metformin extended release 500 mg twice daily. 7. Lasix 40 mg daily. 8. Ellipta inhaler daily. 9. Cetirizine 10 mg daily. 10. Albuterol inhaler q.6 hourly p.r.n. ALLERGIES: ALLERGIC TO PENICILLIN AND SULFA. INPATIENT CONSULT: Dr. Reyna for Pulmonology. DISCHARGE PLAN: The patient to follow up with her primary care physician, Dr. Hampton in 1 week. She needs to follow up with Dr. Reyna in 2 to 3 weeks. BRIEF COURSE DURING HOSPITALIZATION: The patient initially got admitted on the with complaints of shortness of breath. She was also positive for influenza A antigen. The patient had acute on chronic respiratory failure with hypoxia and acute on chronic COPD exacerbation. She normally was on 2 L oxygen and is also on prednisone 10 mg daily at home. In view of this history, the patient has had consultation with Dr. Reyna for Pulmonology as well. The patient was on IV steroids along with Tamiflu, Levaquin. She has had gentle diuresis done as well. The patient has had slow recuperation due to underlying lung disease and influenza infection. She still has deconditioning and also saturates down to 80% on minimal ambulation despite being on oxygen. In view of this history, she is being discharged to [facility] for further recuperation prior to going home. Please see a [id number] documentation for the day [facility]. A total of 35 minutes was spent on discharge plan. Dr. Reyna is planning to get her home trilogy ventilator for nighttime use. This will be set up once the patient is discharged from [facility] to her home. She is otherwise hemodynamically stable. Job ID: [id number] [facility]TDD
--- NOTE | 2019-04-16 08:53 | PQF ---
FRANCIS ABERNATHY VINAYA KUMAR MD [id number] CLINICAL DOCUMENTATION CLARIFICATION FORM: POST DISCHARGE Addendum to original discharge summary date: ____ Late entry note date: __ DATE:04/16/2019 ATTN: CARLOS BECK MD Please exercise your independent, professional judgment in responding to the clarification form. Clinical indicators are provided on the bottom of this form for your review Diagnosis:Sepsis Present on Admission (POA): [ x ] Yes [ ] No [ ] Unable to determine Coding guidelines require hospitals to identify whether a diagnosis was present on admission (POA) or not. To accurately assign the appropriate POA indicator, this information must be clearly documented within the medical record. CLINICAL INDICATORS - SIGNS / SYMPTOMS / LABS [id number] in ER on 04/09 by Charlie Mccall [id number] in ER on 04/09 by Charlie Mccall The patient will be admitted to medical floor for acute on chronic respiratory failure with hypoxia, Chronic obstructive pulmonary disease exacerbation, Influenza A-Documented in H&P on 04/09 by Carlos Beck WBC-3.8-Documented in Laboratory Sepsis-Documented in Discharge summary on 04/15 by Carlos Beck RISK FACTORS: The patient will be admitted to medical floor for acute on chronic respiratory failure with hypoxia, Chronic obstructive pulmonary disease exacerbation, Influenza A-Documented in H&P on 04/09 by Carlos Beck TREATMENT: The patient angelia be on Tamiflu 75 mg p.o twice daily-Documented in H&P on 04/09 by Carlos Beck Empirically on levaquin 500 mg IV daily-Documented in H&P on 04/09 by Carlos Beck Continue antibiotics-Documented in Hospitalist PN on 04/11 by Kevin Rutledge [facility] [employer] Winform Viewer (This form is maintained as a part of the permanent medical record) 2014 [employer] All Rights Reserved [email or web address] [phone] MILLY
== END 2019-04-15 16:26 | DRG 871 ==
LOC: ERS 11:36 → T4-B 15:00 → 2SE 15:23 → T4-B 15:23
PROVIDERS: ADMIT Internal Medicine; ATTEND Internal Medicine
DX: A41.9 Sepsis, unspecified organism (principal); J96.21 Acute and chronic respiratory failure with hypoxia; J96.22 Acute and chronic respiratory failure with hypercapnia; I50.32 Chronic diastolic (congestive) heart failure; J44.1 Chronic obstructive pulmonary disease with (acute) exacerbation; J10.1 Influenza due to other identified influenza virus with other respiratory manifestations; E11.9 Type 2 diabetes mellitus without complications; E78.5 Hyperlipidemia, unspecified; I11.0 Hypertensive heart disease with heart failure; Z88.0 Allergy status to penicillin; Z88.2 Allergy status to sulfonamides; Z90.710 Acquired absence of both cervix and uterus; Z95.828 Presence of other vascular implants and grafts; Z98.890 Other specified postprocedural states
CPT/HCPCS: 36415; 36416; 71045; 80048; 80053; 82550; 82805; 83605; 83690; 83880; 84484; 85014; 85018; 85025; 87040; 87804; 93005; 93306; 94644; 96365; 96366; 96368; 96372; 96375; 99213; G0463; J0696; J1100; J1650; J1940; J1956; J2920; J3475; J7512; J7611; J7620

== ENCOUNTER 2019-05-18 08:38 | Outpatient (CLI) | payer MEDICARE, OTHER ==
--- NOTE | 2019-05-18 12:48 | MMO ---
Bilateral MAMMO Bilat Screen DDI+GENE. CLINICAL HISTORY: Patient is 78 years old and is seen for screening. The patient has the following family history of breast cancer: maternal aunt, at age 45, malignant (generic). The patient has no personal history of cancer. VIEWS: The views performed were: bilateral craniocaudal with tomosynthesis and bilateral mediolateral oblique with tomosynthesis. FILMS COMPARED: The present examination has been compared to prior imaging studies performed at [facility] on 10/30/2015 and 11/01/2016. This study has been interpreted with the assistance of computer-aided detection. MAMMOGRAM FINDINGS: There are scattered fibroglandular densities. There are stable benign appearing calcifications seen in both breasts. There are also vascular calcifications. There are no suspicious masses, suspicious calcifications, or new areas of architectural distortion. IMPRESSION: THERE IS NO MAMMOGRAPHIC EVIDENCE OF MALIGNANCY. A ROUTINE FOLLOW-UP MAMMOGRAM IN 1 YEAR IS RECOMMENDED. THE RESULTS OF THIS EXAM WERE SENT TO THE PATIENT. ACR BI-RADS Category 2 - Benign finding MAMMOGRAPHY NOTE: 1. A negative mammogram report should not delay a biopsy if a dominant of clinically suspicious mass is present. 2. Approximately 10% to 15% of breast cancers are not detected by mammography. 3. Adenosis and dense breasts may obscure an underlying neoplasm. Reported by: ANCA SEARS MD Electonically Signed: [id number]
== END 2019-05-18 08:39 | disposition home or self-care (01) ==
LOC: BICMAMMO 08:38
PROVIDERS: ATTEND Family Medicine
DX: Z12.31 Encounter for screening mammogram for malignant neoplasm of breast (principal); Z80.3 Family history of malignant neoplasm of breast
CPT/HCPCS: 77063; 77067

== ENCOUNTER 2019-05-25 15:09 | Outpatient (CLI) | payer MEDICARE, OTHER ==
--- NOTE | 2019-05-25 15:52 | BD ---
Exam: DEXA Bone Density 05/25/19 HISTORY: Postmenopausal. Lumbar Spine: BMD (g/cm2) T-SCORE L1 0.746 -2.2 L2 0.763 -2.4 L3 0.901 -1.7 L4 0.895 -1.5 L1-L4 0.836 -1.9 Femoral Neck: 0.640 -1.9 Total Femur: 0.793 -1.3 Impression: Osteopenia of the lumbar spine and left femoral neck. POS: DELGADO
== END 2019-05-25 15:10 | disposition home or self-care (01) ==
LOC: BICMAMMO 15:09
PROVIDERS: ATTEND Family Medicine
DX: Z13.820 Encounter for screening for osteoporosis (principal); N95.9 Unspecified menopausal and perimenopausal disorder; E11.65 Type 2 diabetes mellitus with hyperglycemia; M85.89 Other specified disorders of bone density and structure, multiple sites
CPT/HCPCS: 77080

== ENCOUNTER 2019-08-21 12:08 | Inpatient (IN) | payer MEDICARE, OTHER ==
--- NOTE | 2019-08-21 12:55 | RAD ---
EXAM: CHEST ONE VIEW HISTORY: Low hemoglobin and dizzy spells. COMPARISON: 04/09/2019 FINDINGS: Cardiac silhouette is magnified by projection and stable in size. Pulmonary vasculature is within nor mal limits. Focal eventration right hemidiaphragm is seen. There is suggestion of patchy increased density at the left lung base laterally in the expected location of the lingula. This could be relate d to superimposition of soft tissues, but atelectasis versus area of pneumonitis cannot be entirely excluded. Follow-up PA and lateral chest x-ray is recommended. Vascular calcifications are seen in th oracic aorta. Degenerative changes noted in the spine. IMPRESSION: Question of patchy density lateral aspect left lung base in the region of the lingula. This may be re lated to overlying soft tissue density, but focal area of atelectasis versus pneumonitis is a possibility. Follow-up PA and lateral chest x-ray is suggested.
[2019-08-21 13:01] LABS: #Basophils 0.1 thou/uL (0.0-0.2); #Eosinphils 0.1 thou/uL (0.0-0.7); #Lymphocytes 2.1 thou/uL (1.20-3.40); #Monocytes 1.5 thou/uL (0.11-0.59); #Neutrophils 11.8 thou/uL (1.40-6.50); %Basophils 0.6 % (0.0-1.0); %Eosinophils 0.8 % (0.0-10.0); %Lymphocytes 13.2 % (21.0-51.0); %Monocytes 9.7 % (0.0-10.0); %Neutrophils 75.6 % (42.0-75.0); Hemoglobin 7.5 g/dL (12.0-16.0); Mean Corpuscular HGB CONC 28.5 g/dL (32.0-36.0); Mean Corpuscular Hemoglobin 23.2 pg (27.0-31.0); Mean Corpuscular Volume 81.4 fL (78.0-98.0); Mean Platelet Volume 8.5 fL (7.4-10.4); Platelet Count 439 thou/uL (130-400); RBC Distribution Width 16.4 % (11.5-14.5); Red Blood Cell (RBC) Count 3.22 mill/uL (4.20-5.40); White Blood Cell (WBC) Count 15.5 thou/uL (4.8-10.8)
[2019-08-21 13:12] LABS: INR-International Normal Ratio 0.9; Prothrombin Time 12.5 sec (12.0-14.7)
[2019-08-21 13:19] LABS: ALT (SGPT) 14 U/L (8-55); AST (SGOT) 30 U/L (5-34); Alkaline Phosphatase 54 U/L (40-110); Anion Gap 19 mmol/L (10-20); BUN (Urea Nitrogen) 20 mg/dL (9.8-20.1); Bilirubin, Total 0.6 mg/dL (0.2-1.2); Calc. Creatinine Clearance 0 mL/min (70-130); Carbon Dioxide 26 mmol/L (23-31); Chloride 98 mmol/L (98-107); Estimated GFR-MDRD 47; Globulin 2.8 g/dL (2.4-3.5); Glucose 202 mg/dL (83-110); Potassium 4.7 mmol/L (3.5-5.1); Protein, Total 6.8 g/dL (6.0-8.3); Sodium 138 mmol/L (136-145)
[2019-08-21] MEDS ORDERED: Pantoprazole 40 MG VIAL IVP SCH (13:30)
[2019-08-21 13:47] LABS: CKMB 1.6 ng/mL (0-6.6)
[2019-08-21] MEDS ORDERED: Pantoprazole 80 MG, Admixture Fee 1 EACH in Sodium Chloride 0.9% 100 ML IVPB SCH (14:00)
[2019-08-21] MEDS ORDERED: Ondansetron ODT 4 MG TAB SL PRN (15:55)
[2019-08-21] MEDS ORDERED: Sodium Chloride 0.9% 1,000 ML IV SCH ×2 (15:55→18:15)
[2019-08-21] MEDS ORDERED: Acetaminophen 325 MG TAB PO PRN (15:55)
[2019-08-21] MEDS ORDERED: Ondansetron PF 4 MG/2 ML Vial IVP PRN (15:55)
[2019-08-21 16:15] VITALS: BMI 33.4
[2019-08-21] MEDS ORDERED: ALPRAZolam 0.25 MG TAB PO PRN (18:04)
[2019-08-21] MEDS ORDERED: Albuterol Sulfate 1.25 MG/3 ML NEB NEB PRN (18:30)
--- NOTE | 2019-08-21 18:32 | PDOC.HHP ---
Hospitalist HPI - History of Present Illness black stools, dizziness History of Present Illness: 78yo F w/ MHx of AVMs throughout colon, external hemorrhoids presents for dizziness and black stools. Patient had multiple such episodes in the last year , was diagnosed with AVMs throughout large and small bowel (per patient), and was started on IV iron to avoid oral-iron induced constipation and bleeding. Last dose of IV iron was months ago. Three days ago, started having progressively worsening dizziness, fatigue associated with once daily melenic stools, which was similar to previous presentations, so came to the ED. On encounter, laying comfortably in bed and endorses improved fatigue since arriving at ER. Endorses using daily steroids for COPD. Denies external bleeding , hematemesis, hematochezia, chest pain, palpitations, dyspnea, constipation, diarrhea. ED Course: In the ED, found to be dizzy, anemic, and tachycardic. was admitted to medical floor for further management Hospitalist ROS - Review of Systems Constitutional: denies: fever, chills, sweats, weakness, malaise, other Respiratory: denies: cough, dry, shortness of breath, hemoptysis, SOB with excertion, pleuritic pain, sputum, wheezing, other Cardiovascular: denies: chest pain, palpitations, orthopnea, paroxysmal noc. dyspnea, edema, light headedness, other Gastrointestinal: denies: nausea, vomiting, abdominal pain, diarrhea, constipation, melena, hematochezia, other - Medication Medications: Active Medications Generic Name Dose Route Start Last Admin Trade Name Freq PRN Reason Stop Dose Admin Sodium Chloride 1,000 mls @ 100 mls/hr 08/21/19 15:55 08/21/19 18:08 Normal Saline 0.9% IV 08/22/19 01:15 1,000 mls .Q10H MAURI Administration Hospitalist History - Past Medical History Source: patient (History of COPD, diabetes mellitus type 2, hypertension, history of colonic AV malformations with blood loss anemia in the past from last 3 years. Last colonoscopy was a year back. She gets iron transfusions for the same and the last one was on the 19 of March, history of hemorrhoids, partial hysterectomy, bilateral femoral artery stents for peripheral vascular disease, right middle finger surgery. Medications: per EMR ALLERGIES: ALLERGIC TO PENICILLIN AND SULFA. PERSONAL HISTORY: Quit smoking in 1992, prior to which has smoked half pack a day for nearly 20 years. Does not abuse alcohol or drugs. FAMILY HISTORY: No inheritable disease per the patient.), old records Pulmonary: reports: COPD Gastrointestinal: reports: Hemorrhoids, Other (AVMs throughout colon) - Exam General Appearance: NAD, awake alert Eye - other findings: pale conjunctivae Heart: RRR, no murmur, no gallops, no rubs Respiratory: CTAB, no wheezes, no rales, no ronchi Gastrointestinal: soft, non-tender, non-distended, normal bowel sounds Extremities: no edema Psychiatric: normal affect, normal behavior, A&O x 3 Hospitalist Results - Labs Result Diagrams: 08/21/19 12:34 08/21/19 12:34 Lab results: WBC 15.5 thou/uL (4.8-10.8) H 08/21/19 12:34 Hgb 7.5 g/dL (12.0-16.0) L 08/21/19 12:34 Hct 26.2 % (36.0-47.0) L 08/21/19 12:34 MCV 81.4 fL (78.0-98.0) 08/21/19 12:34 Plt Count 439 thou/uL (130-400) H 08/21/19 12:34 Neutrophils % 75.6 % (42.0-75.0) H 08/21/19 12:34 Sodium 138 mmol/L (136-145) 08/21/19 12:34 Potassium 4.7 mmol/L (3.5-5.1) 08/21/19 12:34 Chloride 98 mmol/L (98-107) 08/21/19 12:34 Carbon Dioxide 26 mmol/L (23-31) 08/21/19 12:34 BUN 20 mg/dL (9.8-20.1) 08/21/19 12:34 Creatinine 1.12 mg/dL (0.6-1.1) H 08/21/19 12:34 Glucose 202 mg/dL (83-110) H 08/21/19 12:34 Calcium 9.0 mg/dL (7.8-10.44) 08/21/19 12:34 Total Bilirubin 0.6 mg/dL (0.2-1.2) 08/21/19 12:34 AST 30 U/L (5-34) 08/21/19 12:34 ALT 14 U/L (8-55) 08/21/19 12:34 Alkaline Phosphatase 54 U/L (40-110) 08/21/19 12:34 CK-MB (CK-2) 1.6 ng/mL (0-6.6) 08/21/19 12:34 Troponin I 0.030 ng/mL (< 0.028) H 08/21/19 12:34 Serum Total Protein 6.8 g/dL (6.0-8.3) 08/21/19 12:34 Albumin 4.0 g/dL (3.4-4.8) 08/21/19 12:34 - EKG Interpretation EKG: no acute ischemia Hospitalist H&P A/P - Problem (1) GI bleeding Code(s): K92.2 - GASTROINTESTINAL HEMORRHAGE, UNSPECIFIED Status: Acute Assessment and Plan: chronic symptomatic anemia likely due to bleeding AVMs but medical terminologist steroid user, may be gastric pathology HD stable -considering symptomatic anemia, 1 x PRBC follow H&H q8h IVF match I/O pantoprazole IV (2) COPD exacerbation Code(s): J44.1 - CHRONIC OBSTRUCTIVE PULMONARY DISEASE W (ACUTE) EXACERBATION Status: Acute (3) DM type 2 (diabetes mellitus, type 2) Status: Chronic Qualifiers: Diabetes mellitus half-way insulin use: without medical terminologist use (4) HTN (hypertension) Code(s): I10 - ESSENTIAL (PRIMARY) HYPERTENSION Status: Chronic Qualifiers: Hypertension type: essential hypertension Qualified Code(s): I10 - Essential (primary) hypertension
[2019-08-21 19:41] LABS: Hemoglobin 7.9 g/dL (12.0-16.0)
[2019-08-21] MEDS: Mometasone 100 MCG/PUFF (1 INHALER) INH SCH (20:15)
[2019-08-21] MEDS ORDERED: Dextrose 50% Abboject 50 ML SYRINGE SLOW IVP PRN (21:01)
[2019-08-21] MEDS ORDERED: HumaLOG 300 UNITS/3 ML VIAL SC PRN (21:01)
[2019-08-21] MEDS ORDERED: Dextrose 5% in Water 1,000 ML IV PRN (21:01)
[2019-08-21] MEDS: HumaLOG 300 UNITS/3 ML VIAL SC PRN (21:20)
[2019-08-22 06:16] LABS: Hemoglobin 7.3 g/dL (12.0-16.0)
[2019-08-22 06:40] LABS: Anion Gap 13 mmol/L (10-20); BUN (Urea Nitrogen) 18 mg/dL (9.8-20.1); Calc. Creatinine Clearance 64 mL/min (70-130); Calcium 8.2 mg/dL (7.8-10.44); Carbon Dioxide 26 mmol/L (23-31); Chloride 104 mmol/L (98-107); Estimated GFR-MDRD 54; Glucose 138 mg/dL (83-110); Sodium 139 mmol/L (136-145)
[2019-08-22] MEDS: Mometasone 100 MCG/PUFF (1 INHALER) INH SCH ×2 (07:05→18:45)
[2019-08-22] MEDS: Montelukast Sodium 10 mg Tablet PO SCH (08:46)
[2019-08-22] MEDS: Rosuvastatin 10 MG TAB PO SCH (08:46)
[2019-08-22] MEDS: Pantoprazole 40 MG VIAL IVP SCH (08:46)
[2019-08-22] MEDS ORDERED: metFORMIN 500 MG TAB PO SCH (09:00)
[2019-08-22] MEDS ORDERED: PREDNISONE PO SCH (09:00)
[2019-08-22] MEDS ORDERED: Iron, Sodium Ferric Gluconate 250 MG in Sodium Chloride 0.9% 100 ML IVPB SCH (10:30)
--- NOTE | 2019-08-22 14:29 | PDOC.HOSPP ---
- Subjective Encounter Date: 08/22/19 Encounter Time: 10:00 Subjective: no overnight events this morning feeling better and has no complaints. pending obtaining records and GI eval - Objective Vital Signs & Weight: Vital Signs (12 hours) Temp Pulse Resp BP Pulse Ox 08/22/19 12:42 82 16 99 08/22/19 11:00 97.8 F 82 18 163/67 H 99 08/22/19 08:00 98.1 F 88 17 127/66 100 08/22/19 07:05 85 16 08/22/19 05:25 97.9 F 84 16 109/61 100 Weight Weight 188 lb 14.4 oz I&O: 08/21/19 08/22/19 08/23/19 06:59 06:59 06:59 Intake Total 1250 Balance 1250 Result Diagrams: 08/22/19 05:40 08/22/19 05:40 Additional Labs: Accuchecks 08/22/19 08/22/19 08/21/19 11:46 05:26 20:26 POC Glucose 168 H 166 H 220 H 08/21/19 16:46 POC Glucose 216 H Hospitalist ROS - Review of Systems Constitutional: denies: fever, chills, sweats, weakness, malaise, other Respiratory: denies: cough, dry, shortness of breath, hemoptysis, SOB with excertion, pleuritic pain, sputum, wheezing, other Cardiovascular: denies: chest pain, palpitations, orthopnea, paroxysmal noc. dyspnea, edema, light headedness, other Gastrointestinal: denies: nausea, vomiting, abdominal pain, diarrhea, constipation, melena, hematochezia, other - Medication Medications: Active Medications Generic Name Dose Route Start Last Admin Trade Name Freq PRN Reason Stop Dose Admin Albuterol/Ipratropium 3 ml 08/21/19 23:59 08/22/19 12:42 Duoneb NEB 3 ml Q6HR MAURI Administration Insulin Human Lispro 0 units 08/21/19 21:01 08/21/19 21:20 Humalog SC 2 unit .BEDTIME SLIDING SC PRN Administration Bedtime Correctional Scale Mometasone Furoate 100 mcg 08/21/19 21:00 08/22/19 07:05 Asmanex Hfa 100 Mcg INH Not Given BID MAURI Montelukast Sodium 10 mg 08/22/19 09:00 08/22/19 08:46 Singulair PO 10 mg DAILY MAURI Administration Pantoprazole Sodium 40 mg 08/22/19 09:00 08/22/19 08:46 Protonix IVP 40 mg DAILY MAURI Administration Rosuvastatin Calcium 10 mg 08/22/19 09:00 08/22/19 08:46 Crestor PO 10 mg DAILY MAURI Administration - Exam General Appearance: NAD, awake alert Heart: RRR, no murmur, no gallops, no rubs, normal peripheral pulses Respiratory: CTAB, no wheezes, no rales, no ronchi, normal chest expansion, no tachypnea, normal percussion Gastrointestinal: soft, non-tender, non-distended, normal bowel sounds, no palpable masses, no hepatomegaly, no splenomegaly, no bruit Extremities: no edema Hosp A/P (1) GI bleeding Code(s): K92.2 - GASTROINTESTINAL HEMORRHAGE, UNSPECIFIED Status: Acute (2) COPD exacerbation Code(s): J44.1 - CHRONIC OBSTRUCTIVE PULMONARY DISEASE W (ACUTE) EXACERBATION Status: Acute (3) DM type 2 (diabetes mellitus, type 2) Status: Chronic Qualifiers: Diabetes mellitus jail insulin use: without jail use (4) HTN (hypertension) Code(s): I10 - ESSENTIAL (PRIMARY) HYPERTENSION Status: Chronic Qualifiers: Hypertension type: essential hypertension Qualified Code(s): I10 - Essential (primary) hypertension - Plan -HD and HgB stable; symptoms resolved -Transfuse if HgB < 7 -obtaining records re previous EGD and colonoscopy -pending GI evaluation
[2019-08-22 15:25] LABS: Hemoglobin 7.4 g/dL (12.0-16.0)
--- NOTE | 2019-08-22 19:49 | CON ---
DATE OF CONSULTATION: 08/22/2019 CHIEF COMPLAINT: Weakness, dizziness. HISTORY OF PRESENT ILLNESS: Ms. Marquez is a 78-year-old woman who was admitted through the emergency room with weakness and intermittent black stools. She has had no abdominal pain or nausea or vomiting. No diarrhea or constipation. She has one or two loose stools per day and sometimes they are black for a couple of days and then she might go a couple weeks with normal brown stools and then have black stool again intermittently. She has had iron deficiency anemia and intermittent bleeding for years, and has undergone upper and lower endoscopy multiple times in [place], [place] with [facility]. She was told that she had too many AVMs in her small intestine to cauterize, and she has just been treated with IV iron infusions as needed. She did have an IV iron infusion several months ago, but has not had any in the last few months. She had a baseline hemoglobin back in June, which was 9.8. With this weakness and dizziness, it is typical when she has become anemic in the past, and so she needed to come onto the emergency room, and she was found to have anemia with a hemoglobin of 7.4. She received 1 unit transfusion yesterday. PAST MEDICAL HISTORY: 1. Chronic GI bleeding secondary to small bowel AVMs with associated iron deficiency anemia. 2. Chronic obstructive pulmonary disease, on home oxygen. 3. She was admitted to the hospital back in April with influenza. 4. Diabetes mellitus, hypertension. PAST SURGICAL HISTORY: Partial hysterectomy, femoral artery stents, surgery on her finger. FAMILY HISTORY: Negative for GI malignancy. SOCIAL HISTORY: She quit smoking in 1992. No alcohol or drugs. ALLERGIES: PENICILLIN, SULFA. MEDICATIONS: Prior to admission, metformin, prednisone 10 mg daily, rosuvastatin, montelukast, furosemide, inhalers, Xanax, cetirizine. REVIEW OF SYSTEMS: Negative x10 systems reviewed except as stated in history of present illness. PHYSICAL EXAMINATION: VITAL SIGNS: Temperature 97.8, pulse 82, blood pressure 163/67. GENERAL: She is in no acute distress. Alert and oriented x3. HEENT: Eyes have no scleral icterus. Oropharynx is clear without lesions. No cervical or supraclavicular lymphadenopathy. LUNGS: Clear to auscultation bilaterally. HEART: Regular rate and rhythm without murmur. ABDOMEN: Soft, nontender, and nondistended. Bowel sounds are present. RECTAL: Rectal exam reveals light brown stool in the rectal vault now. EXTREMITIES: No lower extremity edema. LABORATORY DATA: White blood cell count 15.5, hemoglobin 7.3 after 1 unit transfusion, 7.4 prior to transfusion, platelets 439. INR 0.9, creatinine 1.0. Her last iron studies were from June. Her iron was 32, TIBC 400. Her ferritin 3 days ago was 11.6. IMPRESSION: 1. Iron deficiency anemia. 2. Anemia of acute and chronic gastrointestinal blood loss. She has intermittent black stools from history of small bowel arteriovenous malformations, which are reportedly too extensive to cauterize. She has been treated with iron infusions as needed. She has not had an iron infusion for several months. Currently, there is no overt bleeding as she has light brown stool in the rectal vault. 3. Chronic obstructive pulmonary disease, on home oxygen. RECOMMENDATIONS: 1. Obtain records from GI in [place]. Obtain her last upper and lower endoscopy reports. 2. If she truly has extensive small bowel AVMs, then repeat endoscopy currently is unlikely to be helpful given that she is not having acute overt bleeding. She likely just needs to resume more aggressive IV iron supplementation as needed. 3. Transfuse as needed. 4. Proton pump inhibitor. 5. We can advance to full liquid diet for this afternoon and resume a clear liquid diet tomorrow. Pending review of the previous endoscopy records. Job ID: [id number]
[2019-08-22] MEDS: HumaLOG 300 UNITS/3 ML VIAL SC PRN (21:07)
[2019-08-23 00:34] VITALS: TEMP 97.9
[2019-08-23 05:35] LABS: Hemoglobin 7.7 g/dL (12.0-16.0)
[2019-08-23 07:22] VITALS: BP 131/72
[2019-08-23] MEDS: Mometasone 100 MCG/PUFF (1 INHALER) INH SCH (08:00)
[2019-08-23] MEDS: Montelukast Sodium 10 mg Tablet PO SCH (08:35)
[2019-08-23] MEDS: Rosuvastatin 10 MG TAB PO SCH (08:35)
[2019-08-23] MEDS: Pantoprazole 40 MG VIAL IVP SCH (08:36)
--- NOTE | 2019-08-23 14:57 | PRG ---
DATE OF SERVICE: 08/23/2019 SUBJECTIVE: Ms. Marquez has no acute complaints. OBJECTIVE: VITAL SIGNS: Temperature 97.9, pulse 96, and blood pressure 131/72. GENERAL: She is in no acute distress. Alert and oriented x3. LUNGS: Clear to auscultation bilaterally. She has decreased breath sounds in lower lung souza. HEART: Regular rate and rhythm without murmur. ABDOMEN: Soft, nontender, and nondistended. Bowel sounds are present. EXTREMITIES: No lower extremity edema. LABORATORY DATA: Hemoglobin is 7.7. IMPRESSION: Iron-deficiency anemia secondary to chronic gastrointestinal blood loss. I reviewed the endoscopy records from [place]. She had upper endoscopy in July of 2015 that was normal. She had a capsule endoscopy in 2018 that was normal. She had colonoscopy in July of 2015 that showed multiple arteriovenous malformations in the cecum and ascending colon. These were not intervened on. The patient reports that the tobacco conditioner told her that there were too many arteriovenous malformations to burn. She therefore has been treated with IV iron. RECOMMENDATIONS: 1. Given the severity of the anemia now and iron deficiency, I did offer a repeat colonoscopy now to assess if we can cauterize the AVMs. It appears that her last colonoscopy was July of 2015. 2. Given her COPD requiring home oxygen and deconditioning, she would prefer to try to continue with IV iron infusions for following through with colonoscopy. She has an appointment with Dr. Bright set up for next week and she is receiving IV iron in the hospital now. 3. She can follow up in the office with me in a month or so. We will see how she responds to the iron infusions. Job ID: [id number]
[2019-08-23] MEDS ORDERED: Mometasone 100 MCG/PUFF (1 INHALER) INH SCH (18:30)
--- NOTE | 2019-08-24 11:26 | DIS ---
DATE OF ADMISSION: 08/21/2019 DATE OF DISCHARGE: 08/23/2019 Ms. Marquez is a 78-year-old female with medical history of diffuse AVMs throughout the small and large intestine, external hemorrhoids, presented with dizziness and black stools. She was diagnosed with symptomatic anemia due to GI bleeding. She was transfused with one PRBC and symptoms resolved promptly. After records were obtained from previous colonoscopy and discussion with the Gastroenterology service, the patient decided to obtain colonoscopy as an outpatient with her known physician rather than as an inpatient. The patient was discharged hemodynamically stable with no complaints and no symptoms associated with anemia with followup appointments with her physician within a week. DISCHARGE MEDICATIONS: New medication senna docusate once daily, hold for more than 2 bowel movements daily. Should be taken until colonoscopy is carried out. Continued medications prednisone, metformin, montelukast, furosemide, Trelegy Ellipta, cetirizine, albuterol, rosuvastatin. Job ID: [id number] MTDD
--- NOTE | 2019-08-25 15:34 | EKG ---
Test Reason : DIZZINESS, NEAR SYNC Blood Pressure : / mmHG Vent. Rate : 097 BPM Atrial Rate : 097 BPM P-R Int : 132 ms QRS Dur : 082 ms QT Int : 352 ms P-R-T Axes : 042 -40 041 degrees QTc Int : 447 ms Normal sinus rhythm with sinus arrhythmia Left axis deviation Septal infarct , age undetermined Abnormal ECG Confirmed by SHAILESH MCDONOUGH ([id number]), publication editor ALYSE NICHOLAS ([id number]) on 08/25/2019 3:33:47 PM Referred By: Confirmed By:SHAILESH MCDONOUGH
== END 2019-08-23 17:47 | disposition home or self-care (01) | DRG 378 ==
LOC: ERS 12:08 → T4-B 14:16
PROVIDERS: ADMIT Internal Medicine; ATTEND Internal Medicine
PROC: 30233N1 Transfusion of Nonautologous Red Blood Cells into Peripheral Vein, Percutaneous Approach (ICD-10-PCS; principal; 2019-08-21)
DX: K55.21 Angiodysplasia of colon with hemorrhage (principal); D62 Acute posthemorrhagic anemia; J44.1 Chronic obstructive pulmonary disease with (acute) exacerbation; I11.0 Hypertensive heart disease with heart failure; I50.9 Heart failure, unspecified; F41.9 Anxiety disorder, unspecified; E11.9 Type 2 diabetes mellitus without complications; K64.4 Residual hemorrhoidal skin tags; F17.210 Nicotine dependence, cigarettes, uncomplicated; Z98.51 Tubal ligation status; Z90.710 Acquired absence of both cervix and uterus; Z88.0 Allergy status to penicillin; Z88.2 Allergy status to sulfonamides; Z79.4 Long term (current) use of insulin
CPT/HCPCS: 36415; 36416; 36430; 71045; 80048; 80053; 82274; 82553; 82728; 84484; 85014; 85018; 85025; 85610; 85730; 86850; 86900; 86901; 93005; 94640; 96361; 96365; C9113; J2916; J3490; J7620; P9016

== ENCOUNTER 2019-10-27 08:36 | Outpatient (CLI) | payer MEDICARE, OTHER ==
[2019-10-27] MEDS ORDERED: Iopamidol-370 76% 500 ML 1 ML ONE (08:48)
--- NOTE | 2019-10-27 10:25 | CT ---
EXAM: CTA of the abdomen, pelvis, and bilateral lower extremities HISTORY: Peripheral vascular disease. Leg pain and swelling COMPARISON: None TECHNIQUE: Multiple contiguous axial images were obtained a CTA of the abdomen, pelvis, and bilateral lower extremities with contrast. Sagittal and coronal 3-D MIP reformats were performed. FINDINGS: Liver: Diffuse fatty infiltration. Gallbladder: Cholelithiasis. Kidneys: Hypodensities in the left kidney measuring up to 1.2 cm in size represent cysts. There is a nonobstructing 3 to 4 mm left renal calcification.. Adrenal glands: Unremarkable. Spleen: Unremarkable. Pancreas: Unremarkable. Bowel: Scattered diverticula in the colon. Normal caliber large and small bowel. Normal appendix. Reproductive organs :Unremarkable. Retroperitoneum: No lymphadenopathy Bones: Degenerative changes in the spine. Inferior thorax: Unremarkable. Abdominal aorta. Normal caliber without evidence of dissection or aneurysmal dilatation. Celiac trunk: Atherosclerotic disease at the ostium without significant stenosis SMA: Atherosclerotic disease at the ostium without significant stenosis MAMIE: Patent Renal arteries: A single renal artery is seen on each side. Atherosclerotic disease at the ostium wit hout significant stenosis Bilateral common iliac arteries: Kissing stents extending into the distal aorta. Stents are patent. Internal iliac arteries: Unremarkable. External iliac arteries: Unremarkable. Common femoral arteries: Mild bilateral atherosclerotic disease at the bifurcation.. Profunda femoral arteries: Unremarkable. Superficial femoral arteries: Unremarkable. Popliteal arteries: Unremarkable. Right lower extremity: 3 vessel runoff without significant disease Left lower extremity: 3 vessel runoff without significant disease IMPRESSION: 1. Diffuse nonfocal atherosclerotic disease as above this is predominantly central within the aorta a nd its branches. 2. Fatty liver 3. Cholelithiasis 4. Left renal cysts 5. Nonobstructing left renal calcification
== END 2019-10-27 08:37 | disposition home or self-care (01) ==
LOC: BICCT 08:36
PROVIDERS: ATTEND Internal Medicine Cardiovascular Disease
DX: I73.9 Peripheral vascular disease, unspecified (principal); K76.0 Fatty (change of) liver, not elsewhere classified; K80.20 Calculus of gallbladder without cholecystitis without obstruction; N28.1 Cyst of kidney, acquired; N28.89 Other specified disorders of kidney and ureter; I70.0 Atherosclerosis of aorta; I70.1 Atherosclerosis of renal artery; K55.1 Chronic vascular disorders of intestine; I70.8 Atherosclerosis of other arteries; I70.201 Unspecified atherosclerosis of native arteries of extremities, right leg; I70.202 Unspecified atherosclerosis of native arteries of extremities, left leg
CPT/HCPCS: 75635; 82565; Q9967